=== PATIENT | male | born 1965 | race Caucasian/White ===

== ENCOUNTER 2023-03-28 13:22 | Emergency (ER) | payer OTHER ==
[~2023-03-28] VITALS: Ht 170.2 cm; Wt 114.8 kg
[2023-03-28 13:55] VITALS: BP 152/91; PULSE 102; RESP 20; TEMP 98; O2SAT 95
[2023-03-28] MEDS ORDERED: KETOROLAC 30 MG/ML VIAL IM ONE (15:00)
[2023-03-28] MEDS ORDERED: NAPR-54 PO (16:24)
[2023-03-28] MEDS ORDERED: PRED20TA5 PO (16:24)
[2023-03-28] MEDS ORDERED: ACET-8905 PO (16:29)
== END 2023-03-28 16:39 | disposition home or self-care (01) ==
LOC: MED 13:22
DX: M10.9 Gout, unspecified (principal); J45.909 Unspecified asthma, uncomplicated; I10 Essential (primary) hypertension; Z79.899 Other long term (current) drug therapy; Z79.1 Long term (current) use of non-steroidal anti-inflammatories (NSAID)
CPT/HCPCS: 73630; 96372; 99283; J1885